=== PATIENT | male | born 1940 | race Caucasian/White ===

== ENCOUNTER 2016-10-04 15:18 | Inpatient (IN) | payer MEDICARE, BC ==
[~2016-10-04] VITALS: Ht 180.3 cm; Wt 75.0 kg
[2016-10-14] MEDS ORDERED: LOSA100T PO (11:42)
[2016-10-14] MEDS ORDERED: MISC1CAP7 PO (11:44)
[2016-10-14] MEDS ORDERED: ZOLP10TA3 PO (11:44)
[2016-10-14] MEDS ORDERED: TURMCAP PO (11:44)
[2016-10-14] MEDS ORDERED: PANT40TA3 PO (11:44)
[2016-10-14] MEDS ORDERED: NAPR220T95 PO (11:44)
[2016-10-14] MEDS ORDERED: B-CO1TAB3 PO (11:44)
[2016-10-29] VITALS (7 sets, daily range): BP systolic 120–140; BP diastolic 62–80; PULSE 71–84; RESP 16–20; TEMP 95.6–97.8; O2SAT 97–100
[2016-10-29] MEDS ORDERED: METOPROLOL TARTRATE 25 MG TAB PO PRN (05:30)
[2016-10-29] MEDS ORDERED: INSULIN HUMAN REGULAR 1,000 UNITS/10 ML VIAL SQ PRN (05:30)
[2016-10-29] MEDS ORDERED: LACTATED RINGER'S 1000 ML IV SCH (05:30)
[2016-10-29] MEDS ORDERED: SODIUM CHLORID 0.9% 500 ML IV SCH (05:30)
[2016-10-29] MEDS: CHLORHEXIDINE GLUCONATE 4% SOLN 120 ML BTL TOP SCH (05:45)
[2016-10-29] MEDS ORDERED: ceFAZolin 2 GM PREMIX 50 ML IV SCH (05:45)
[2016-10-29] MEDS ORDERED: GENTAMICIN SULFATE 80 MG/2 ML VIAL ONE (06:08)
[2016-10-29] MEDS ORDERED: MIDAZOLAM HCL 5 MG/5 ML VIAL ONE (06:10)
[2016-10-29] MEDS ORDERED: fentaNYL CITRATE 250 MCG/5 ML AMP ONE (06:49)
[2016-10-29] MEDS ORDERED: FAMOTIDINE 20 MG/2 ML VIAL ONE (06:49)
[2016-10-29] MEDS ORDERED: TRANEXAMIC ACID INJ 750 MG in SODIUM CHLORIDE 0.9% INJ 100 ML IV SCH ×2 (07:00→10:00)
[2016-10-29] MEDS: EXPAREL PERI-ARTICULAR INJECTION (TOTAL VOL. 100 ML) P-ARTICULR SCH ×4 (07:00→07:25)
[2016-10-29] MEDS: LACTATED RINGER'S 1000 ML INJ 1,000 ML IV SCH ×2 (09:27→21:57)
[2016-10-29] MEDS ORDERED: ACETAMINOPHEN/HYDROcodone 325 MG/7.5 MG TAB PO PRN (09:30)
[2016-10-29] MEDS ORDERED: TRANEXAMIC ACID INJ 0 MG in SODIUM CHLORIDE 0.9% INJ 100 ML IV SCH (09:30)
[2016-10-29] MEDS ORDERED: ONDANSETRON HCL 4 MG/2 ML VIAL IVP PRN (09:30)
[2016-10-29] MEDS ORDERED: MAGNESIUM HYDROXIDE SUSP 30 ML CUP PO PRN (09:30)
[2016-10-29] MEDS ORDERED: MORPHINE SULFATE 4 MG/ML INJ IV PUSH PRN (09:30)
[2016-10-29] MEDS ORDERED: ZOLPIDEM TARTRATE 5 MG TAB PO PRN (09:30)
[2016-10-29] MEDS ORDERED: *morphine SULFATE 8 MG/ML PERIprocedure ONLY ONE ×2 (09:55→10:19)
[2016-10-29] MEDS ORDERED: Post-op Orders (for Pharmacy) MISC XX ONE (10:00)
[2016-10-29] MEDS ORDERED: DO NOT ADM ANY ANTICOAGULANT DRUGS XX PRN (10:15)
[2016-10-29] MEDS ORDERED: PROPOFOL 200 MG/20 ML AMP IV ONE (10:22)
[2016-10-29] MEDS ORDERED: LACTATED RINGER'S 1000 ML INJ 1,000 ML IV ONE (10:22)
[2016-10-29] MEDS: KETOROLAC TROMETHAMINE 30 MG/ML (IVP) VIAL IVP SCH ×3 (10:29→21:16)
--- NOTE | 2016-10-29 10:32 | MP ---
cc: Shantell KEATING. DATE OF SURGERY 10/29/2016 PREOPERATIVE DIAGNOSIS Primary osteoarthritis left knee POSTOPERATIVE DIAGNOSIS Primary osteoarthritis left knee OPERATION PERFORMED Left total knee arthroplasty with [place] Triathlon prosthesis (uncemented). SURGEON Nayan Keating MD PAINTER ASSISTANT Pati Davenport, CSFA ANESTHESIA Spinal with supplemental adductor canal block and local. INDICATIONS AND FINDINGS This 76-year-old man has had over 20 years of left knee pain progressively worsening over the past several months. His ambulation tolerance has been markedly limited recently to approximately one mile because of his pain. He has difficulty ascending and descending stairs, standing from a seated position, walking, dancing and has episodes of giving-way. Treatment has included anti-inflammatory agents, analgesics, activity modification, specific exercises, physical therapy and ambulatory aids. He has not responded to these conservative measures. Physical findings showed significant genu varum in the left knee with palpable osteophytes. His range of motion was fairly good but there is crepitation throughout the entire range of motion. There is laxity in the medial compartment as well as tenderness in the medial compartment. There is patellofemoral crepitation. X-rays showed tricompartmental arthritis with predominant findings being in the medial compartment with loss of articular cartilage to bone on bone with medial osteophytes and subchondral sclerosis in the medial compartment. Operative findings showed changes consistent with the radiographic findings with primarily osteoarthritis in the medial compartment down to exposed subchondral bone with subchondral sclerosis on both sides. There are medial, lateral and patellofemoral osteophytes. There was change in the patellofemoral and lateral compartment as well. PROSTHESIS USED [place] Triathlon prosthesis with the femur being an uncemented size 6 cruciate-retaining, the tibia being a size 7 tritanium baseplate with a 9-mm cruciate-retaining spacer of X3 polyethylene and the patella being a tritanium backed asymmetric patella size 38. PROCEDURE The patient had an adductor canal block carried out preoperatively. He was then brought to the clean-air operating suite where a spinal anesthetic was administered. He received prophylactic antibiotics in the form of Ancef. He also received tranexamic acid. After an appropriate time-out, local anesthetic was administered into the incision site preoperatively. An anterior incision was then made from about two fingerbreadths above the superior medial pole of the patella down to the tibial tubercle. The incision was deepened through the subcutaneous tissues to the retinacular structures which were exposed medially and laterally. Medial retinacular incision was made from the superior medial pole of the patella down to the tibial tubercle. This was carried up into the quadriceps tendon, splitting it longitudinally in the medial one-third. The patella was reflected. Medial and lateral dissection was carried out. Hemostasis was carefully achieved with electrocautery throughout the procedure. The posterior surface of the patella was excised using the oscillating saw taking care to prevent injury to tendinous structures. A patella protector was applied. The patella was slipped into the lateral gutter. The anterior cruciate ligament was excised. A fenestration was made in the distal end of the femur at the appropriate site above the posterior cruciate ligament. The intramedullary referencing guide was then positioned in place for a 5-degree, 8-mm cut. The cutting block was stabilized with pins. The jig was removed. The distal femoral cut was then completed with the oscillating saw taking care to prevent injury to associated structures. The Whitesides line was marked as was the epicondylar axis. The distal femoral sizing guide was positioned in place according to these landmarks. These were stabilized with pins. The size was determined to be a size 6. A size 6 four-in-one cutting block was then positioned in place and stabilized with pins. Anterior and posterior cuts were made followed by posterior and anterior chamfer cuts. Osteophytes were trimmed. Attention was then directed to the tibia. Medial and lateral meniscectomies were completed. The tibia was exposed. Proximal tibial cutting guide and jig were then positioned appropriately. The cutting guide was positioned in place using the stylus off the lateral side. Cutting block was stabilized with pins. The jig was removed. The depth of cut was verified with the spacer block. This was adjusted accordingly. The proximal tibial cut was then completed with the oscillating saw taking care to prevent injury to associated structures. Depth of cut was verified with the spacer block. The cutting guide was removed. Further osteophytes were trimmed from the tibia. The osteophytes were trimmed from the posterior aspect of the femur. Local anesthesia was administered throughout the knee with Exparel. The tibial baseplate trial size [address] with a 9-mm spacer. The femoral component was impacted into place. This was then seated appropriately. The patella drill guide was positioned in place. Drill holes were then made. The patella trial was stabilized. The tibial baseplate was positioned in place as well and stabilized with pins. The range of motion of the knee at this time was 0 to 155 degrees. The stability was excellent in flexion and extension. Fenestrations were made in the distal end of the femur through femoral trial. The femoral trial was removed. The tibial spacer was removed. The tibial punch was impacted through its guide. The tibial baseplate trial was removed. The tibial drill guide was inserted. Tibial drill holes were made. In the eburnated area additional drill holes were made for circulation. The cut ends were then cleaned with pulse lavage. The tibial baseplate was then impacted into place and seated appropriately. The spacer was then inserted and impacted into place. The femoral component was impacted into place and seated appropriately. The patella was then positioned in place with the patellar vice. The appearance appeared excellent. The knee was taken through a range of motion which was easily 0 degrees extension to 155 degrees of flexion. Stability was excellent throughout the entire range of motion. Drains were brought out the superior and lateral aspect of the suprapatellar pouch. The remainder of the Exparel was injected. Wound closure then commenced using 0 Vicryl interrupted [id number] sutures for the retinacular structures and capsular structures and fascial structures, 2-0 Vicryl interrupted simple sutures with buried knots for the subcutaneous tissues and 4-0 Monocryl continuous subcuticular closure for the skin. The wound was dressed with Steri-Strips followed by dry dressing, sterile Sof-Rol, cooling pad, further sterile Sof-Rol and Wagner bandages from the base of the toe to mid-thigh. The patient was transferred from the operating room to the recovery room in satisfactory condition having tolerated the procedure well. COUNTS Correct. SPECIMEN None. ESTIMATED BLOOD LOSS 350 mL. MD DENISE Pimentel/SALMA /9:35 AM /10:15 AM MISTY
--- NOTE | 2016-10-29 10:40 | RADRPT ---
EXAM DATE/TIME: 10/29/2016 10:02 [place] COMPARISON: No previous studies available for comparison. INDICATIONS : Post op left knee surgery. MEDICAL HISTORY : None. SURGICAL HISTORY : None. ENCOUNTER: Initial ACUITY: 1 day PAIN SCORE: 5/10 LOCATION: Left knee FINDINGS: Two view examination of the left knee demonstrates postoperative left total knee replacement. Drain i n soft tissues. CONCLUSION: 1. Postoperative left total knee replacement. No complications identified. Ezekiel Oleary MD on October 29, 2016 at 10:38 Board Certified Radiologist. This report was verified electronically.
[2016-10-29] MEDS: ACETAMINOPHEN/HYDROcodone 325 MG/7.5 MG TAB PO PRN (12:42)
[2016-10-29] MEDS: SODIUM CHLORIDE 0.9% FLUSH 5 ML FLUSH IVF SCH (21:16)
[2016-10-30] VITALS: BP 136/73; PULSE 95; RESP 17; TEMP 97.5; O2SAT 97
[2016-10-30 04:00] VITALS: BP 130/70; PULSE 96; RESP 17; TEMP 97.3; O2SAT 97
[2016-10-30] MEDS: KETOROLAC TROMETHAMINE 30 MG/ML (IVP) VIAL IVP SCH ×4 (04:37→21:53)
[2016-10-30] MEDS: CHLORHEXIDINE GLUCONATE 4% SOLN 120 ML BTL TOP SCH (05:45)
[2016-10-30] MEDS: ACETAMINOPHEN/HYDROcodone 325 MG/7.5 MG TAB PO PRN ×4 (05:47→22:12)
--- NOTE | 2016-10-30 07:16 | PD.ORT.PN ---
Subjective Post Op Day #: 1 Subjective Remarks He is doing well with the knee. He says that he could have walked more with PT, but the therapist told him not to. He was able to walk to the bathroom. The nurses reported that he had difficulty voiding, so he was catheterized with a return of 600 ml. They left the catheter in. He has seen Dr. Chavez in the past but has not seen him in years. He usually takes some medication. He was able to void while upright in the bathroom. Range of Motion 0 to 90 degrees. Distance Walked 25 feet. Objective Vitals Vital Signs Date Time Temp Pulse Resp B/P Pulse Ox O2 Delivery O2 Flow Rate FiO2 10/30/16 04:00 97.3 96 17 130/70 97 10/30/16 00:00 97.5 95 17 136/73 97 10/29/16 22:00 97 21 10/29/16 19:00 96.7 83 16 133/64 97 10/29/16 16:12 95.7 74 16 120/62 99 10/29/16 13:44 18 10/29/16 11:43 98 Nasal Cannula 2.00 10/29/16 11:16 95.6 71 17 132/75 98 10/29/16 11:00 97.3 71 14 139/79 100 Nasal Cannula 2 10/29/16 10:45 65 12 120/72 100 Nasal Cannula 2 10/29/16 10:30 63 14 121/69 100 Nasal Cannula 2 10/29/16 10:25 12 10/29/16 10:15 63 12 114/74 100 Nasal Cannula 2 10/29/16 10:00 64 12 111/68 100 Nasal Cannula 2 10/29/16 10:00 12 10/29/16 09:45 99.3 73 14 113/60 98 Nasal Cannula 2 I/O 10/29/16 10/29/16 10/29/16 10/30/16 10/30/16 10/30/16 07:00 15:00 23:00 07:00 15:00 23:00 Intake Total 1680 ml 578 ml 480 ml Output Total 150 ml 490 ml 630 ml Balance -150 ml 1190 ml -52 ml 480 ml Intake Oral 480 ml 480 ml 480 ml IV Total 98 ml Other 1200 ml Output Urine Total 150 ml 600 ml Drainage Total 140 ml 30 ml Estimated Blood Loss 350 ml # Voids 1 1 0 # Bowel Movements 0 0 Imaging Knee x-ray looks good. Last 72 hours Impressions Knee X-Ray 10/29/16 0000 Signed Impressions: Service Date/Time: Saturday, October 29, 2016 10:02 - CONCLUSION: 1. Postoperative left total knee replacement. No complications identified. Ezekiel Oleary MD Objective Remarks He is resting comfortably, supine in bed in the [facility]. The original dressing is dry and intact. The neurovascular status is intact. Assessment & Plan Ortho Post Op Day #: 1 Problem List: (1) Status post total left knee replacement Plan: Continue postop care and PT. Assessment and Plan Condition: Good. Orthopaedically stable. DVT prophylaxis: DORIS stockings, sequentials, Xarelto. Discharge plans: Home with [facility], today or tomorrow. He has an appointment. Urology consultation for difficulty voiding and catheter disposition. Rx: [place] 7.5/325. Matthew Chambers MD (Charles) Oct 30, 2016 07:16
[2016-10-30] MEDS ORDERED: HYDR-3580 PO (07:56)
[2016-10-30] MEDS ORDERED: XARE10TA PO (07:56)
[2016-10-30 08:00] VITALS: BP 144/86; PULSE 90; RESP 16; TEMP 96.3; O2SAT 97
--- NOTE | 2016-10-30 08:01 | HHI.FF ---
Face to Face Verification Diagnosis: (1) Status post total left knee replacement Physical Therapy Gait training Knee: Total knee, Protocol: Left, Full weight bearing Left LE Weight Bearing: WB as tolerated Left LE Range of Motion: Active ROM (AROM, AAROM, PROM, PRE. ROM in OR was 0 to 155 degrees. ROM goal is 0 to 135 degrees at least.) Nursing Nursing: Dressing changes Dressing Changes: Daily dressing change, Coverderm/Primapore Additional Instructions Remove steristrips on postop day 14. I have seen patient Chace Villatoro on 10/30/16. My clinical findings support the need for the requested home health care services because: Ltd mobility - disease progression Limited ability to care for self High risk of falls I certify that my clinical findings support that this patient is homebound because: Post-op weakness Unsteady gait/balance Unsafe to leave home unassisted Matthew Chambers MD (Charles) Oct 30, 2016 08:01
[2016-10-30 08:03] LABS: HEMATOCRIT 32.3 % (39.0-51.0); REVIEW FLAG FINAL
[2016-10-30] MEDS ORDERED: WALKER WHEELS/F1 MIS (08:06)
[2016-10-30] MEDS ORDERED: MISC-163 (08:08)
[2016-10-30] MEDS: SODIUM CHLORIDE 0.9% FLUSH 5 ML FLUSH IVF SCH ×2 (08:48→21:53)
[2016-10-30] MEDS: RIVAROXABAN 10 MG TAB PO SCH (08:48)
[2016-10-30] MEDS ORDERED: ZOLPIDEM TARTRATE 10 MG TAB PO PRN (10:15)
[2016-10-30] MEDS: LACTATED RINGER'S 1000 ML INJ 1,000 ML IV SCH ×2 (10:27→22:57)
[2016-10-30] MEDS: PANTOPRAZOLE SOD 40 MG DELAYED RELEASE TAB PO SCH (10:49)
[2016-10-30] MEDS: LOSARTAN 50 MG TAB PO SCH (10:49)
[2016-10-30] MEDS: SODIUM CHLORIDE 0.9% FLUSH 5 ML FLUSH IVF PRN ×2 (10:49→16:53)
--- NOTE | 2016-10-30 11:14 | PD.CONS ---
[facility] Service Urology Consult Requested By Reason for Consult Urinary retention Primary Care Physician Walt Ha MD Diagnosis: History of Present Illness 76-year-old gentleman with history BPH and associated PSA elevation who recently underwent left knee surgery on October 29 of this year. Postoperatively the patient has been having problems urinating necessitating placement of a Mills catheter. Patient reports that prior to his present hospitalization he was using a saw palmetto containing product with excellent results in his voiding function. He reports that he is status post multiple prostate biopsies in the past for PSA elevation in all biopsies failed to demonstrate any evidence of prostate cancer. He formerly saw Dr. Chavez but has not followed up with him for the past several years. Review of Systems Constitutional: DENIES: Fever, Chills Gastrointestinal: DENIES: Abdominal pain Genitourinary: DENIES: Hematuria, Testicular Pain Musculoskeletal: DENIES: Back pain Past Family Social History Past Medical History Refer to EMR Past Surgical History Refer to EMR Reported Medications Refer to EMR Allergies: Coded Allergies: Polysporin (Unverified Allergy, Severe, Hives, 10/29/16) Ciprofloxacin (Unverified Adverse Reaction, Unknown, LOOSE STOOL, 10/29/16) Active Ordered Medications Refer to EMR Family History Reviewed and noncontributory Social History Lives at home with Physical Exam Vital Signs Vital Signs Date Time Temp Pulse Resp B/P Pulse Ox O2 Delivery O2 Flow Rate FiO2 10/30/16 08:00 96.3 90 16 144/86 97 10/30/16 04:00 97.3 96 17 130/70 97 10/30/16 00:00 97.5 95 17 136/73 97 10/29/16 22:00 97 21 10/29/16 19:00 96.7 83 16 133/64 97 10/29/16 16:12 95.7 74 16 120/62 99 10/29/16 13:44 18 10/29/16 11:43 98 Nasal Cannula 2.00 10/29/16 11:16 95.6 71 17 132/75 98 Physical Exam GENERAL: This is a well-nourished, well-developed patient, in no apparent distress. SKIN: No rashes, ecchymoses or lesions. Cool and dry. HEAD: Atraumatic. Normocephalic. No temporal or scalp tenderness. EYES: Pupils equal round and reactive. Extraocular motions intact. No scleral icterus. No injection or drainage. ENT: Nose without bleeding, purulent drainage or septal hematoma. Throat without erythema, tonsillar hypertrophy or exudate. Uvula midline. Airway patent. NECK: Trachea midline. No JVD or lymphadenopathy. Supple, nontender, no meningeal signs. GASTROINTESTINAL: Abdomen soft, non-tender, nondistended. No hepato-splenomegaly , or palpable masses. No guarding. : Mills catheter in place draining clear yellow urine. Bladder not distended MUSCULOSKELETAL: Extremities adequately perfused NEUROLOGICAL: Awake and alert. Cranial nerves II through XII intact. Motor and sensory grossly within normal limits. Normal speech. Laboratory Laboratory Tests Test 10/30/16 07:10 Hemoglobin 11.2 Hematocrit 32.3 Result Diagram: 10/30/16 0710 Assessment and Plan Assessment and Plan Urologic impression: #1 history BPH that has been responding well to [id number] supplements. #2 history PSA elevation related to BPH #3 postoperative urinary retention of most likely transient nature Recommendations: #1 implement a 1 week course of therapy with Flomax 0.4 mg daily to facilitate voiding #2 DC Mills catheter tomorrow morning for trial of voiding #3 if patient fails voiding trial then will need to have Mills catheter replaced and arrangements made for office follow up [phone]. Santos Yung MD Oct 30, 2016 11:14
[2016-10-30 12:00] VITALS: BP 143/72; PULSE 94; RESP 16; TEMP 97.3; O2SAT 96
[2016-10-30] MEDS: TAMSULOSIN HCL 0.4 MG CAP PO SCH (12:04)
--- NOTE | 2016-10-30 13:18 | PD.CONS ---
[facility] By [facility] Reason for Consult Med management Primary Care Physician Walt Ha MD Diagnoses: History of Present Illness 68 years old male with history of BPH and hypertension, admitted for left knee replacement on 10/29/16, patient Jason urinary obstruction postop, Mills placed, urology consulted. Patient reportedly using saw palmetto contained product before this hospitalization with a good result on voiding. Patient reported having multiple prostate biopsies in the past which were negative for any cancer. Currently he denied any chest or short of breath abdominal pain diarrhea constipation, fever or chills. Mills in place and functional, ortho following patient has a primary orthopedic service Review of Systems Other All 10 systems reviewed and was positive for what is mentioned in history of present illness otherwise negative Past Family Social History Allergies: Coded Allergies: Polysporin (Unverified Allergy, Severe, Hives, 10/29/16) Ciprofloxacin (Unverified Adverse Reaction, Unknown, LOOSE STOOL, 10/29/16) Past Medical History Hypertension Chronic pain to arthritis GERD Insomnia Family History Reviewed noncontributory Social History Denied tobacco alcohol or illicit drug abuse Physical Exam Vital Signs Vital Signs Date Time Temp Pulse Resp B/P Pulse Ox O2 Delivery O2 Flow Rate FiO2 10/30/16 12:00 97.3 94 16 143/72 96 10/30/16 08:00 96.3 90 16 144/86 97 10/30/16 04:00 97.3 96 17 130/70 97 10/30/16 00:00 97.5 95 17 136/73 97 10/29/16 22:00 97 21 10/29/16 19:00 96.7 83 16 133/64 97 10/29/16 16:12 95.7 74 16 120/62 99 10/29/16 13:44 18 Physical Exam GENERAL: This is a well-nourished, well-developed patient, in no apparent distress. SKIN: No rashes, warm and dry HEAD: Atraumatic. Normocephalic. EYES: Pupils equal round and reactive. Extraocular motions intact. No scleral icterus. ENT: Nose without bleeding, or drainage, Airway patent. NECK: Trachea midline. Supple CARDIOVASCULAR: Regular rate and rhythm without murmurs, gallops, or rubs. RESPIRATORY: Fair air entry bilaterally. No wheezes, rales, or rhonchi. GASTROINTESTINAL: Abdomen soft, non-tender, nondistended. Positive bowel sounds MUSCULOSKELETAL: Extremities without clubbing, cyanosis, or edema. Pedal pulses appreciated NEUROLOGICAL: Awake and alert. Moves all extremity. Normal speech.no focal neurological deficit Laboratory Laboratory Tests Test 10/30/16 07:10 Hemoglobin 11.2 Hematocrit 32.3 Result Diagram: 10/30/16 0710 Imaging Last Impressions Knee X-Ray 10/29/16 0000 Signed Impressions: Service Date/Time: Saturday, October 29, 2016 10:02 - CONCLUSION: 1. Postoperative left total knee replacement. No complications identified. Ezekiel Oleary MD Assessment and Plan Assessment and Plan 76 years old female admitted for Osteoarthritis status post left knee arthroplasty: Follow up postop pain management DVT prophylaxis per ortho on Xarelto, PT OT and rehabilitation per primary Postop urinary obstruction with history of BPH and elevated PSA: Started on Flomax by urology, appreciate neurology consultation, plan for removing catheter and voiding trial, if failed to return Mills catheter and follow up as an outpatient Hypertension: We will continue losartan, Vasotec as needed Insomnia: Continue Ambien DvT prophylaxis per ortho on Xarelto Thank you for this consultation Doreen Jaffe MD Oct 30, 2016 13:18
[2016-10-30 16:00] VITALS: BP 114/58; PULSE 95; RESP 16; TEMP 96.2; O2SAT 99
[2016-10-30 20:00] VITALS: BP 110/59; PULSE 87; RESP 18; TEMP 97.7; O2SAT 96
[2016-10-30] MEDS: DOCUSATE SODIUM 100 MG CAP PO SCH (21:53)
[2016-10-31] VITALS: BP 131/59; PULSE 88; RESP 18; TEMP 98; O2SAT 94
[2016-10-31] MEDS: KETOROLAC TROMETHAMINE 30 MG/ML (IVP) VIAL IVP SCH (03:11)
[2016-10-31] MEDS: CHLORHEXIDINE GLUCONATE 4% SOLN 120 ML BTL TOP SCH (03:11)
[2016-10-31 04:00] VITALS: BP 120/63; PULSE 94; RESP 18; TEMP 96.7; O2SAT 95
[2016-10-31] MEDS: ACETAMINOPHEN/HYDROcodone 325 MG/7.5 MG TAB PO PRN ×3 (05:40→14:45)
--- NOTE | 2016-10-31 06:24 | PD.ORT.PN ---
Subjective Post Op Day #: 2 Subjective Remarks He is doing quite well with the knee. He did well with therapy and attended the class. Thanks to Dr. Yung for his assistance. Range of Motion 0 to 95 degrees. Distance Walked 200 feet. Objective Vitals Vital Signs Date Time Temp Pulse Resp B/P Pulse Ox O2 Delivery O2 Flow Rate FiO2 10/31/16 04:00 96.7 94 18 120/63 95 10/31/16 00:00 98.0 88 18 131/59 94 10/30/16 20:00 97.7 87 18 110/59 96 10/30/16 18:28 21 10/30/16 16:00 96.2 95 16 114/58 99 10/30/16 12:00 97.3 94 16 143/72 96 10/30/16 08:00 96.3 90 16 144/86 97 I/O 10/30/16 10/30/16 10/30/16 10/31/16 10/31/16 10/31/16 07:00 15:00 23:00 07:00 15:00 23:00 Intake Total 1080 ml 1260 ml 480 ml Output Total 120 ml 2080 ml 550 ml 50 ml Balance 960 ml -820 ml -70 ml -50 ml Intake Oral 480 ml 1260 ml 480 ml IV Total 600 ml Output Urine Total 1900 ml 500 ml Drainage Total 120 ml 180 ml 50 ml 50 ml # Voids 0 # Bowel Movements 0 0 0 Result Diagram: 10/30/16 0710 Imaging Knee x-ray looks good. Last 72 hours Impressions Knee X-Ray 10/29/16 0000 Signed Impressions: Service Date/Time: Saturday, October 29, 2016 10:02 - CONCLUSION: 1. Postoperative left total knee replacement. No complications identified. Ezekiel Oleary MD Objective Remarks He is resting comfortably, supine in bed in the [facility]. The original dressing is dry and intact. The neurovascular status is intact.] Assessment & Plan Ortho Post Op Day #: 2 Problem List: (1) Status post total left knee replacement Plan: Continue postop care and PT. Assessment and Plan Condition: Good. Orthopaedically stable. DVT prophylaxis: DORIS stockings, sequentials, Xarelto. Discharge plans: Home with [facility], today. He has an appointment. Urology (Dr. Law's) plans on catheter disposition will be followed. Rx: [place] 7.5/325. Matthew Chambers MD (Charles) Oct 31, 2016 06:24 Urology consultation for difficulty voiding and catheter disposition. Rx: [place] 7.5/325. Matthew Chambers MD (Charles) Oct 31, 2016 06:24
[2016-10-31 07:22] LABS: HEMATOCRIT 30.1 % (39.0-51.0); REVIEW FLAG FINAL
[2016-10-31 08:00] VITALS: BP 126/67; PULSE 95; RESP 18; TEMP 95.7; O2SAT 98
[2016-10-31] MEDS: SODIUM CHLORIDE 0.9% FLUSH 5 ML FLUSH IVF SCH (09:24)
[2016-10-31] MEDS: LOSARTAN 50 MG TAB PO SCH (09:25)
[2016-10-31] MEDS: TAMSULOSIN HCL 0.4 MG CAP PO SCH (09:25)
[2016-10-31] MEDS: PANTOPRAZOLE SOD 40 MG DELAYED RELEASE TAB PO SCH (09:25)
[2016-10-31] MEDS: DOCUSATE SODIUM 100 MG CAP PO SCH (09:25)
[2016-10-31] MEDS: RIVAROXABAN 10 MG TAB PO SCH (09:25)
[2016-10-31] MEDS: LACTATED RINGER'S 1000 ML INJ 1,000 ML IV SCH (11:27)
[2016-10-31 12:00] VITALS: BP 120/62; PULSE 98; RESP 18; TEMP 96.6; O2SAT 98
--- NOTE | 2016-10-31 13:21 | HHI.PR ---
Subjective Remarks Patient sitting on the edge of the bed, his at the bedside Mills catheter removed, he is urinating small amounts "slowly " He reported loose stool, probably overuse of stool softener as per his Objective Vitals Vital Signs Date Time Temp Pulse Resp B/P Pulse Ox O2 Delivery O2 Flow Rate FiO2 10/31/16 12:00 96.6 98 18 120/62 98 10/31/16 08:00 95.7 95 18 126/67 98 10/31/16 04:00 96.7 94 18 120/63 95 10/31/16 00:00 98.0 88 18 131/59 94 10/30/16 20:00 97.7 87 18 110/59 96 10/30/16 18:28 21 10/30/16 16:00 96.2 95 16 114/58 99 I/O 10/30/16 10/30/16 10/30/16 10/31/16 10/31/16 10/31/16 07:00 15:00 23:00 07:00 15:00 23:00 Intake Total 1080 ml 1260 ml 480 ml 240 ml Output Total 120 ml 2080 ml 550 ml 1200 ml Balance 960 ml -820 ml -70 ml -960 ml Intake Oral 480 ml 1260 ml 480 ml 240 ml IV Total 600 ml Output Urine Total 1900 ml 500 ml 1150 ml Drainage Total 120 ml 180 ml 50 ml 50 ml # Voids 0 # Bowel Movements 0 0 0 0 Result Diagram: 10/31/16 0637 Objective Remarks GENERAL: This is a well-nourished, well-developed patient, in no apparent distress. CARDIOVASCULAR: Regular rate and rhythm without murmurs, gallops, or rubs. RESPIRATORY: Clear to auscultation. Breath sounds equal bilaterally. No wheezes , rales, or rhonchi. GASTROINTESTINAL: Abdomen soft, non-tender, nondistended. Normal active bowel sounds MUSCULOSKELETAL: Extremities without clubbing, cyanosis, or edema. NEURO: Alert & Oriented x4 to person, place, time, situation. Moves all ext x4 A/P Assessment and Plan 76 years old female admitted for Osteoarthritis status post left knee arthroplasty: Follow up postop pain management DVT prophylaxis per ortho on Xarelto, PT OT and rehabilitation per primary Postop urinary obstruction with history of BPH and elevated PSA: Continue Flomax , appreciate neurology consultation, catheter removed, he's able to void slowly , will need to follow up as an outpatient with urologist Hypertension: We will continue losartan, Vasotec as needed Insomnia: Continue Ambien DvT prophylaxis per ortho on Xarelto Discharge Planning Medically stable for discharge Doreen Jaffe MD Oct 31, 2016 13:21
[2016-10-31 13:24] VITALS: O2SAT 96
[2016-11-01] MEDS ORDERED: TAMS5CAP PO (17:32)
[2016-11-27] MEDS ORDERED: CEPH-459 PO (11:27)
[2016-11-28] MEDS ORDERED: TAMS5CAP PO (15:41)
[2016-11-28] MEDS ORDERED: FINA5TAB2 PO (15:41)
== END 2016-10-31 15:14 | disposition home health service (06) | DRG 470 ==
LOC: HSDI 10-29 05:06 → N06B 10-29 11:12
PROVIDERS: ADMIT Orthopaedic Surgery; ATTEND Orthopaedic Surgery
PROC: 3E0T3BZ Introduction of Anesthetic Agent into Peripheral Nerves and Plexi, Percutaneous Approach (ICD-10-PCS; 2016-10-29)
PROC: 0T9B70Z Drainage of Bladder with Drainage Device, Via Natural or Artificial Opening (ICD-10-PCS; 2016-10-29)
PROC: 0SRD0JA Replacement of Left Knee Joint with Synthetic Substitute, Uncemented, Open Approach (ICD-10-PCS; principal; 2016-10-29 06:45)
DX: M17.12 Unilateral primary osteoarthritis, left knee (principal); I10 Essential (primary) hypertension; M21.162 Varus deformity, not elsewhere classified, left knee; Z85.820 Personal history of malignant melanoma of skin; Z85.828 Personal history of other malignant neoplasm of skin; K21.9 Gastro-esophageal reflux disease without esophagitis; R33.8 Other retention of urine; N40.0 Benign prostatic hyperplasia without lower urinary tract symptoms; G47.00 Insomnia, unspecified
CPT/HCPCS: 73560; 85014; 85018; 86850; 86900; 86901; 94150; C1776; C9290; J0690; J1580; J1885; J2250; J2270; J2405; J3010; J7120

== ENCOUNTER 2016-11-01 14:38 | Emergency (ER) | payer MEDICARE, BC ==
[~2016-11-01 14:38] MED LIST: B-CO1TAB3 PO; HYDR-3580 PO; LOSA100T PO; MISC-163; MISC1CAP7 PO; PANT40TA3 PO; TURMCAP PO; WALKER WHEELS/F1 MIS; XARE10TA PO; ZOLP10TA3 PO
[2016-11-01 15:12] VITALS: BP 158/77; PULSE 90; RESP 18; TEMP 98.1; O2SAT 99
[2016-11-01 16:52] LABS: AUTOMATED NEUTROPHIL # 6.1 TH/MM3 (1.8-7.7); BASOPHIL % 0.6 % (0.0-2.0); EOSINOPHIL # 0.1 TH/MM3 (0-0.4); EOSINOPHIL % 0.8 % (0.0-4.0); HEMATOCRIT 31.8 % (39.0-51.0); LYMPH % 7.6 % (9.0-44.0); LYMPHOCYTE # 0.6 TH/MM3 (1.0-4.8); MEAN CELL VOLUME 89.9 FL (80.0-100.0); MEAN CORPUSCULAR HEMOGLOBIN 30.2 PG (27.0-34.0); MEAN CORPUSCULAR HGB CONC 33.6 % (32.0-36.0); MONO % 9.3 % (0.0-8.0); NEUT % 81.7 % (16.0-70.0); PLATELET COUNT 220 TH/MM3 (150-450); RED BLOOD COUNT 3.54 MIL/MM3 (4.50-5.90); RED CELL DISTRIBUTION WIDTH 11.8 % (11.6-17.2); WHITE BLOOD COUNT 7.5 TH/MM3 (4.0-11.0)
[2016-11-01 16:53] LABS: BLOOD, URINE TRACE (NEG); GLUCOSE,URINE NEG (NEG); KETONE, URINE NEG (NEG); NITRITE,URINE NEG (NEG)
[2016-11-01 17:00] LABS: POTASSIUM 5.1 MEQ/L (3.5-5.1)
[2016-11-01 17:03] LABS: BICARBONATE 26.6 MEQ/L (21.0-32.0)
--- NOTE | 2016-11-01 17:04 | PD ---
HPI Chief Complaint: Complaint Time Seen by Provider: 16:24 Travel History International Travel<30 days: No Contact w/Intl Traveler<30days: No Traveled to known affect area: No History of Present Illness HPI Patient is a 68-year-old male with a history of recent total left knee replacement presents to the emergency department with inability to urinate since morning. Patient states he had similar problems while in the hospital did see urologist Dr. Yung he did have a Mills catheter in place for a few days had a trial of Flomax one is a little urinary by time he went home. He states he is been having some increased abdominal distention as well as nausea since last night. Patient states he does have a history of enlarged prostate and radiation treatment was present as well. Denies any fever denies any diarrhea denies any abdominal pain. PFSH Past Medical History Cancer: Yes (MELANOMA AND BASAL REMOVED) Cardiovascular Problems: No Diabetes: No Endocrine: No Gastrointestinal Disorders: Yes (GERD) Genitourinary: Yes (ENLARGED PROSTATE) Hepatitis: No Hiatal Hernia: No Hypertension: Yes Immune Disorder: No Implanted Vascular Access Dvce: Yes Musculoskeletal: Yes (OSTEOARTHRITIS) Neurologic: No Psychiatric: No Reproductive: No Respiratory: No Thyroid Disease: No Past Surgical History Abdominal Surgery: No AICD: No Cardiac Surgery: No Ear Surgery: No Endocrine Surgery: No Eye Surgery: No Genitourinary Surgery: No Gynecologic Surgery: No Joint Replacement: Yes (KNEE) Neurologic Surgery: No Oral Surgery: No Pacemaker: No Thoracic Surgery: No Other Surgery: Yes Social History Alcohol Use: Yes (COUPLE DRINKS PER MONTH) Tobacco Use: No Substance Use: No Allergies-Medications (Allergen,Severity, Reaction): Coded Allergies: Polysporin (Unverified Allergy, Severe, Hives, 11/01/16) Ciprofloxacin (Unverified Adverse Reaction, Unknown, LOOSE STOOL, 11/01/16) Reported Meds & Prescriptions Reported Meds & Active Scripts Active Flomax (Tamsulosin HCl) 0.4 Mg Cap 0.4 Mg PO HS Hydrocodone-Acetaminophen 7.5-325 mg Tab 1 Tab PO Q4H PRN Xarelto (Rivaroxaban) 10 Mg Tab 10 Mg PO Q24H Reported B50 Complex Tr (B-Complex W/Biotin & Folic Acid ER) 1 Tab PO DAILY Zolpidem (Zolpidem Tartrate) 10 Mg Tab 10 Mg PO HS PRN Pantoprazole (Pantoprazole Sodium) 40 Mg Tab 40 Mg PO DAILY Losartan (Losartan Potassium) 100 Mg Tab 100 Mg PO DAILY Review of Systems Except as stated in HPI: all other systems reviewed are Neg Physical Exam Narrative GENERAL: Well-developed well-nourished in no apparent distress SKIN: Warm and dry. HEAD: Atraumatic. Normocephalic. EYES: Pupils equal and round. No scleral icterus. No injection or drainage. ENT: No nasal bleeding or discharge. Mucous membranes pink and moist. NECK: Trachea midline. No JVD. CARDIOVASCULAR: Regular rate and rhythm. No murmur appreciated. RESPIRATORY: No accessory muscle use. Clear to auscultation. Breath sounds equal bilaterally. GASTROINTESTINAL: Abdomen soft, minimally tender in the superpubic area, moderately distended. Hepatic and splenic margins not palpable. MUSCULOSKELETAL: No obvious deformities. No clubbing. No cyanosis. No edema. Surgical bandages in place in the left knee, compression stockings as well. No erythema seen tenderness. Bandages were left in place. NEUROLOGICAL: Awake and alert. No obvious cranial nerve deficits. Motor grossly within normal limits. Normal speech. PSYCHIATRIC: Appropriate mood and affect; insight and judgment normal. Data Data Last Documented VS Vital Signs Date Time Temp Pulse Resp B/P Pulse Ox O2 Delivery O2 Flow Rate FiO2 11/01/16 17:57 105 17 138/64 98 Room Air 11/01/16 15:12 98.1 Orders Urinary Catheter Insert/Apply (11/01/16 15:34) Basic Metabolic Panel (Bmp) (11/01/16 16:33) Complete Blood Count With Diff (11/01/16 16:33) Urinalysis - C+S If Indicated (11/01/16 16:33) Labs Laboratory Tests Test 11/01/16 16:45 White Blood Count 7.5 TH/MM3 Red Blood Count 3.54 MIL/MM3 Hemoglobin 10.7 GM/DL Hematocrit 31.8 % Mean Corpuscular Volume 89.9 FL Mean Corpuscular Hemoglobin 30.2 PG Mean Corpuscular Hemoglobin 33.6 % Concent Red Cell Distribution Width 11.8 % Platelet Count 220 TH/MM3 Mean Platelet Volume 7.8 FL Neutrophils (%) (Auto) 81.7 % Lymphocytes (%) (Auto) 7.6 % Monocytes (%) (Auto) 9.3 % Eosinophils (%) (Auto) 0.8 % Basophils (%) (Auto) 0.6 % Neutrophils # (Auto) 6.1 TH/MM3 Lymphocytes # (Auto) 0.6 TH/MM3 Monocytes # (Auto) 0.7 TH/MM3 Eosinophils # (Auto) 0.1 TH/MM3 Basophils # (Auto) 0.0 TH/MM3 CBC Comment DIFF FINAL Differential Comment Urine Collection Type CATH Urine Color STRAW Urine Turbidity CLEAR Urine pH 6.0 Urine Specific [place] 1.007 Urine Protein NEG mg/dL Urine Glucose (UA) NEG mg/dL Urine Ketones NEG mg/dL Urine Occult Blood TRACE Urine Nitrite NEG Urine Bilirubin NEG Urine Leukocyte Esterase NEG Urine RBC 0-3 /hpf Urine Squamous Epithelial 0-2 /hpf Cells Microscopic Urinalysis Comment CULT NOT INDICATED Sodium Level 129 MEQ/L Potassium Level 5.1 MEQ/L Chloride Level 94 MEQ/L Carbon Dioxide Level 26.6 MEQ/L Anion Gap 8 MEQ/L Blood Urea Nitrogen 21 MG/DL Creatinine 2.30 MG/DL Estimat Glomerular Filtration 28 ML/MIN Rate Random Glucose 116 MG/DL Calcium Level 8.4 MG/DL [facility] Medical Decision Making Medical Screen Exam Complete: Yes Emergency Medical Condition: Yes Differential Diagnosis Urinary retention, acute kidney injury, urinary tract infection, BPH. Narrative Course Patient was discussed with Dr. Lew including all lab results and urine output. Patient had a Mills catheter placed in the ER using 1.7 L of urine. Patient felt completely relieved after Mills catheter was placed. Will be discharged with leg bag in place. Patient was discussed with Dr. Lew who is covering for Dr. Yung who will discuss with Dr. Yung over this weekend and arrange for an appointment on Friday in 2 days. Patient will also be started on Flomax. Discussed with him return to ED criteria. Diagnosis Primary Impression: Obstructive uropathy Med/Other Pt SpecificInfo: Prescription(s) given Scripts Tamsulosin (Flomax)0.4 Mg Cap0.4 Mg PO HS #30 CAP Ref 0 Prov:Chace Wen MD 11/01/16 Disposition: 01 DISCHARGE HOME Condition: Stable Chace Wen MD Nov 01, 2016 17:04
[2016-11-01 17:12] LABS: HEMO FLAGS DIFF FINAL
[2016-11-01 17:20] LABS: METHOD OF COLLECTION CATH; URINE COLOR STRAW (YELLW/STRAW)
[2016-11-01 17:21] LABS: COMMENT (UR) CULT NOT INDICATED; CULTURE IF INDICATED CULT NOT INDICATED; RBC, URINE 0-3 /hpf (0-3); SQUAMOUS EPITHELIAL CELL URINE 0-2 /hpf (0-5)
[2016-11-01] MEDS ORDERED: TAMS5CAP PO (17:32)
[2016-11-01 17:57] VITALS: BP 138/64; PULSE 105; RESP 17; O2SAT 98
[2016-11-27] MEDS ORDERED: CEPH-459 PO (11:27)
[2016-11-28] MEDS ORDERED: TAMS5CAP PO (15:41)
[2016-11-28] MEDS ORDERED: FINA5TAB2 PO (15:41)
== END 2016-11-01 18:04 | disposition home or self-care (01) ==
LOC: PHEFT 14:38
DX: N13.9 Obstructive and reflux uropathy, unspecified (principal); R11.0 Nausea; I10 Essential (primary) hypertension
CPT/HCPCS: 51703; 80048; 81001; 85025

== ENCOUNTER 2016-11-07 06:40 | Emergency (ER) | payer MEDICARE, BC ==
[~2016-11-07] VITALS: Ht 180.3 cm; Wt 75.0 kg
[~2016-11-07 06:40] MED LIST changes: -MISC-163; -MISC1CAP7 PO; +TAMS5CAP PO; -TURMCAP PO; -WALKER WHEELS/F1 MIS
[2016-11-07 06:52] VITALS: BP 116/68; PULSE 98; RESP 18; TEMP 98; O2SAT 98
--- NOTE | 2016-11-07 07:25 | PD ---
HPI Chief Complaint: Complaint Time Seen by Provider: 07:08 Travel History International Travel<30 days: No Contact w/Intl Traveler<30days: No Traveled to known affect area: No History of Present Illness HPI This 76-year-old male presents emergent department complaining of inability to urinate bladder spasms. He is a history of prostate problems. He gets up to be about 3 times a night or so. He's had microwave therapy in the past. No history of prostate malignancy. He had his left knee done with Dr. Cuong Chambers on the third. Postop course was complicated by urinary retention. He saw Dr. Yung the hospital. He was doing well. Is placed on Flomax. He was discharged. He developed acute urinary retention was seen in the hospital on the sixth in the emergency department had a Mills catheter placed. He was to follow-up with urology. They called the office and they couldn't get him in for an appointment but that he was doing well. They had him hold the Mills catheter yesterday. 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 He was being well initially during the day, but then overnight was unable to urinate. He's had some dribbling but no real urination since yesterday. No other complaints. History Past Medical History Narrative Medical Hypertension Skin CA BPH GERD Social History Alcohol Use: Yes (COUPLE DRINKS PER MONTH) Tobacco Use: No Allergies-Medications (Allergen,Severity, Reaction): Coded Allergies: Polysporin (Unverified Allergy, Severe, Hives, 11/07/16) Ciprofloxacin (Unverified Adverse Reaction, Unknown, LOOSE STOOL, 11/07/16) Reported Meds & Prescriptions Reported Meds & Active Scripts Active Flomax (Tamsulosin HCl) 0.4 Mg Cap 0.4 Mg PO HS Hydrocodone-Acetaminophen 7.5-325 mg Tab 1 Tab PO Q4H PRN Xarelto (Rivaroxaban) 10 Mg Tab 10 Mg PO Q24H Reported B50 Complex Tr (B-Complex W/Biotin & Folic Acid ER) 1 Tab PO DAILY Zolpidem (Zolpidem Tartrate) 10 Mg Tab 10 Mg PO HS PRN Pantoprazole (Pantoprazole Sodium) 40 Mg Tab 40 Mg PO DAILY Losartan (Losartan Potassium) 100 Mg Tab 100 Mg PO DAILY Review of Systems Except as stated in HPI: all other systems reviewed are Neg Physical Exam Narrative GENERAL: Well-appearing 76-year-old man, no acute distress. SKIN: Warm and dry. HEAD: Atraumatic. Normocephalic. CARDIOVASCULAR: Regular rate and rhythm. No murmur appreciated. RESPIRATORY: No accessory muscle use. Clear to auscultation. Breath sounds equal bilaterally. GASTROINTESTINAL: Abdomen is palpable lower abdominal distention and tenderness. No rebound or guarding. MUSCULOSKELETAL: No obvious deformities. No edema. Left knee with bandage in place. A little bit of swelling to the knee. No erythema redness warmth or evidence of infection. NEUROLOGICAL: Awake and alert. No obvious cranial nerve deficits. Motor grossly within normal limits. Normal speech. Data Data Last Documented VS Vital Signs Date Time Temp Pulse Resp B/P Pulse Ox O2 Delivery O2 Flow Rate FiO2 11/07/16 06:52 98.0 98 18 116/68 98 Orders Basic Metabolic Panel (Bmp) (11/07/16 07:16) Urinalysis - C+S If Indicated (11/07/16 07:16) Urinary Catheter Insert/Apply (11/07/16 07:16) Labs Laboratory Tests Test 11/07/16 07:45 Urine Collection Type CLEAN CATCH Urine Color YELLOW Urine Turbidity CLEAR Urine pH 5.5 Urine Specific [place] 1.014 Urine Protein NEG mg/dL Urine Glucose (UA) NEG mg/dL Urine Ketones NEG mg/dL Urine Occult Blood MOD Urine Nitrite NEG Urine Bilirubin NEG Urine Leukocyte Esterase NEG Urine RBC 15-19 /hpf Urine WBC 0-2 /hpf Urine Squamous Epithelial 0-5 /hpf Cells Microscopic Urinalysis Comment CULT NOT INDICATED Urine Collection Time 07:45 Sodium Level 136 MEQ/L Potassium Level 4.7 MEQ/L Chloride Level 103 MEQ/L Carbon Dioxide Level 22.5 MEQ/L Anion Gap 11 MEQ/L Blood Urea Nitrogen 21 MG/DL Creatinine 1.10 MG/DL Estimat Glomerular Filtration 65 ML/MIN Rate Random Glucose 117 MG/DL Calcium Level 8.8 MG/DL [facility] Medical Decision Making Medical Screen Exam Complete: Yes Emergency Medical Condition: Yes Interpretation(s) UA was some rbc's, no evidence of infection. BMP: BUN and creatinine are improved. Differential Diagnosis Urinary retention, obstructive uropathy, infection, other Narrative Course Medical decision making 76-year-old male with history of BPH presents with recurrent difficulty with urinary retention. We'll replace Mills catheter. We'll check urinalysis GERD patient is new hardware in the left knee would be very susceptible to infection or bacteremia. We'll check creatinine. Creatinine had bumped from 1.19 in September to 2.3 during his last ED visit. Minimal increase in BUN. Outpatient follow-up with urology. Diagnosis Primary Impression: Obstructive uropathy Referrals: Santos Yung MD 1 week Patient Instructions: General Instructions Additional Instructions: Continue Mills catheter care as instructed. He can use petroleum jelly at the tip of the penis if needed for irritation and inflammation. Follow-up with Dr. Yung at the first available appointment. Return to the emergency department for any fevers, chills, or any other new or worsening symptoms. Med/Other Pt SpecificInfo: No Change to Meds Disposition: 01 DISCHARGE HOME Condition: Stable Rhys Ely MD Nov 07, 2016 07:25
[2016-11-07 07:52] LABS: GLUCOSE,URINE NEG (NEG); KETONE, URINE NEG (NEG); NITRITE,URINE NEG (NEG); PH, URINE 5.5 (5.0-8.5)
[2016-11-07 08:00] LABS: BLOOD, URINE MOD (NEG); METHOD OF COLLECTION CLEAN CATCH; POTASSIUM 4.7 MEQ/L (3.5-5.1); URINE COLOR YELLOW (YELLW/STRAW)
[2016-11-07 08:02] LABS: COMMENT (UR) CULT NOT INDICATED; CULTURE IF INDICATED CULT NOT INDICATED; RBC, URINE 15-19 /hpf (0-3); SQUAMOUS EPITHELIAL CELL URINE 0-5 /hpf (0-5); WBC, URINE 0-2 /hpf (0-5)
[2016-11-07 08:03] LABS: BICARBONATE 22.5 MEQ/L (21.0-32.0)
[2016-11-07 08:34] VITALS: BP 112/65
[2016-11-27] MEDS ORDERED: CEPH-459 PO (11:27)
[2016-11-28] MEDS ORDERED: TAMS5CAP PO (15:41)
[2016-11-28] MEDS ORDERED: FINA5TAB2 PO (15:41)
== END 2016-11-07 08:34 | disposition home or self-care (01) ==
LOC: PHED 06:40
DX: N13.9 Obstructive and reflux uropathy, unspecified (principal); N40.0 Benign prostatic hyperplasia without lower urinary tract symptoms; I10 Essential (primary) hypertension
CPT/HCPCS: 51703; 80048; 81001

== ENCOUNTER 2017-01-13 13:42 | Inpatient (IN) | payer MEDICARE, BC ==
[~2017-01-13 13:42] MED LIST changes: +FINA5TAB2 PO; -HYDR-3580 PO; -XARE10TA PO
[2017-01-24] MEDS ORDERED: MELO-1 PO (12:30)
[2017-02-03] MEDS ORDERED: ceFAZolin 2 GM PREMIX 50 ML IV SCH (06:00)
[2017-02-03] MEDS ORDERED: EXPAREL PERI-ARTICULAR INJECTION (TOTAL VOL. 100 ML) P-ARTICULR SCH ×2 (06:00)
[2017-02-03] MEDS ORDERED: CHLORHEXIDINE GLUCONATE 4% SOLN 120 ML BTL TOPICAL SCH (06:00)
[2017-02-03 06:03] VITALS: BP 172/93; PULSE 99; RESP 16; TEMP 98; O2SAT 100
[2017-02-03] MEDS ORDERED: LACTATED RINGER'S 1000 ML IV PRN (06:15)
[2017-02-03] MEDS ORDERED: INSULIN HUMAN REGULAR 1,000 UNITS/10 ML VIAL SQ PRN (06:15)
[2017-02-03] MEDS ORDERED: SODIUM CHLORID 0.9% 500 ML IV PRN (06:15)
[2017-02-03] MEDS ORDERED: METOPROLOL TARTRATE 25 MG TAB PO PRN (06:15)
[2017-02-03] MEDS ORDERED: DEXAMETHASONE SOD PHOS 4 MG/ML VIAL ONE (06:36)
[2017-02-03] MEDS ORDERED: FAMOTIDINE 20 MG/2 ML VIAL ONE (06:36)
[2017-02-03] MEDS ORDERED: ACETAMINOPHEN 1000 MG/100 ML VIAL IV ONE (06:36)
[2017-02-03] MEDS ORDERED: ONDANSETRON HCL 4 MG/2 ML VIAL IVP PRN (07:00)
[2017-02-03] MEDS ORDERED: TRANEXAMIC ACID INJ 0 MG in SODIUM CHLORIDE 0.9% INJ 100 ML IV SCH (07:00)
[2017-02-03] MEDS ORDERED: MORPHINE SULFATE 4 MG/ML INJ IV PUSH PRN (07:00)
[2017-02-03] MEDS ORDERED: ACETAMINOPHEN/HYDROcodone 325 MG/7.5 MG TAB PO PRN (07:00)
[2017-02-03] MEDS ORDERED: MAGNESIUM HYDROXIDE SUSP 30 ML CUP PO PRN (07:00)
[2017-02-03] MEDS ORDERED: TRANEXAMIC ACID INJ 768 MG in SODIUM CHLORIDE 0.9% INJ 100 ML IV SCH ×2 (07:00→10:00)
[2017-02-03] MEDS ORDERED: ZOLPIDEM TARTRATE 5 MG TAB PO PRN (07:00)
[2017-02-03] MEDS ORDERED: Post-op Orders (for Pharmacy) MISC XX ONE (07:00)
[2017-02-03] MEDS ORDERED: SODIUM CHLORIDE 0.9% FLUSH 10 ML FLUSH IV FLUSH PRN (07:15)
[2017-02-03] MEDS ORDERED: GENTAMICIN SULFATE 80 MG/2 ML VIAL IRRIGATION ONE (07:51)
[2017-02-03] MEDS: LACTATED RINGER'S 1000 ML INJ 1,000 ML IV SCH ×2 (08:00→20:30)
[2017-02-03] MEDS: VITAMIN B CMPLX/VITC/FOLIC AC CAP PO SCH (09:00)
[2017-02-03] MEDS: FINASTERIDE 5 MG TAB PO SCH (09:00)
[2017-02-03] MEDS: SODIUM CHLORIDE 0.9% FLUSH 10 ML FLUSH IV FLUSH SCH ×2 (09:00→20:36)
[2017-02-03] MEDS: LOSARTAN 50 MG TAB PO SCH (09:00)
[2017-02-03] MEDS: PANTOPRAZOLE SOD 40 MG DELAYED RELEASE TAB PO SCH (09:00)
--- NOTE | 2017-02-03 09:46 | HHI.FF ---
Face to Face Verification Diagnosis: (1) Status post total right knee replacement Physical Therapy Gait training Knee: Total knee, Knee fracture, Protocol: Right, Gait training, Full weight bearing Right LE Range of Motion: Active ROM (AROM, AAROM, PROM, PRE. ROM goal is 0 to 135 degrees. ROM in the OR was 0 to 150 degrees.) Left LE Weight Bearing: WB as tolerated Nursing Nursing: Dressing changes Dressing Changes: Daily dressing change, Coverderm/Primapore Additional Instructions Remove steristrips on postop day 14. I have seen patient Chace Villatoro on 02/03/17. My clinical findings support the need for the requested home health care services because: Ltd mobility - disease progression Limited ability to care for self High risk of falls I certify that my clinical findings support that this patient is homebound because: Post-op weakness Unsteady gait/balance Unsafe to leave home unassisted Matthew Chambers MD (Charles) Feb 03, 2017 09:46
[2017-02-03] MEDS ORDERED: MIDAZOLAM HCL 2 MG/2 ML VIAL ONE (09:56)
[2017-02-03] MEDS ORDERED: PHENYLEPH/NS 1000 MCG/10 ML SYR IV ONE (10:02)
[2017-02-03] MEDS ORDERED: ONDANSETRON HCL 4 MG/2 ML VIAL IV PUSH ONE (10:02)
[2017-02-03] MEDS ORDERED: PROPOFOL 200 MG/20 ML AMP IV ONE (10:02)
[2017-02-03] MEDS ORDERED: LACTATED RINGER'S 1000 ML INJ 1,000 ML IV ONE (10:02)
[2017-02-03] MEDS ORDERED: *morphine SULFATE 8 MG/ML PERIprocedure ONLY ONE ×2 (10:04→10:17)
--- NOTE | 2017-02-03 10:17 | RADRPT ---
EXAM DATE/TIME: 02/03/2017 09:42 [place] COMPARISON: No previous studies available for comparison. INDICATIONS : Post right total knee surgery. MEDICAL HISTORY : None. SURGICAL HISTORY : None. ENCOUNTER: Initial ACUITY: 1 day PAIN SCORE: Non-responsive. LOCATION: Right Knee. FINDINGS: Right total knee arthroplasty is noted with surgical drains seen anteriorly, soft tissue swelling and soft tissue emphysema at the knee joint. No fracture or dislocation. CONCLUSION: Postsurgical changes right total knee arthroplasty. Da Guevara MD on February 03, 2017 at 10:15 Board Certified Radiologist. This report was verified electronically.
[2017-02-03 11:05] VITALS: BP 142/79; PULSE 84; RESP 16; TEMP 96.2; O2SAT 95
[2017-02-03] MEDS: ACETAMINOPHEN/HYDROcodone 325 MG/7.5 MG TAB PO PRN (11:11)
[2017-02-03] MEDS ORDERED: BUPIVACAINE LIPOSOME PF 1.3% 20 ML VIAL ONE (12:55)
[2017-02-03] MEDS: KETOROLAC TROMETHAMINE 30 MG/ML (IVP) VIAL IVP SCH ×2 (13:25→20:36)
[2017-02-03 15:55] VITALS: BP 134/61; PULSE 89; RESP 16; TEMP 95.1; O2SAT 99
[2017-02-03 15:58] VITALS: O2SAT 98
--- NOTE | 2017-02-03 16:45 | PD.CONS ---
[facility] Request[facility] By Dr. Chambers Reason for Consult Medical management Primary Care Physician Walt Ha MD Diagnoses: History of Present Illness This is a pleasant 76-year-old male with past medical history of BPH, hypertension, GERD who presented with a elective right total knee arthroplasty. [facility] consulted for medical management. Patient stated that 3 months ago he had a left total knee arthroplasty he did well. Patient has no concerns. He does state to make sure that he is is given Flomax at night and finasteride in the morning. Review of Systems Constitutional: DENIES: Diaphoretic episodes, Fatigue, Fever, Weight gain, Weight loss, Chills, Dizziness, Change in appetite, Night Sweats Endocrine: DENIES: Heat/cold intolerance, Polydipsia, Polyuria, Polyphagia Eyes: DENIES: Blurred vision, Diplopia, Eye inflammation, Eye pain, Vision loss , Photosensitivity, Double Vision Ears, nose, mouth, throat: DENIES: Tinnitus, Hearing loss, Vertigo, Nasal discharge, Oral lesions, Throat pain, Hoarseness, Ear Pain, Running Nose, Epistaxis, Sinus Pain, Toothache, Odynophagia Respiratory: DENIES: Apneas, Cough, Snoring, Wheezing, Hemoptysis, Sputum production, Shortness of breath Cardiovascular: DENIES: Chest pain, Palpitations, Syncope, Dyspnea on Exertion , PND, Lower Extremity Edema, Orthopnea, Claudication Gastrointestinal: DENIES: Abdominal pain, Black stools, Bloody stools, Constipation, Diarrhea, Nausea, Vomiting, Difficulty Swallowing, Anorexia Genitourinary: DENIES: Sexual dysfunction, Urinary frequency, Urinary incontinence, Urgency, Hematuria, Dysuria, Nocturia, Penile Discharge, Testicular Pain, Testicular Swelling Musculoskeletal: COMPLAINS OF: Joint pain, Joint Swelling, DENIES: Muscle aches, Stiffness, Back pain, Neck pain Integumentary: DENIES: Abnormal pigmentation, Nail changes, Pruritus, Rash Hematologic/lymphatic: DENIES: Bruising, Lymphadenopathy Immunologic/allergic: DENIES: Eczema, Urticaria Neurologic: DENIES: Abnormal gait, Headache, Localized weakness, Paresthesias, Seizures, Speech Problems, Tremor, Poor Balance Psychiatric: DENIES: Anxiety, Confusion, Mood changes, Depression, Hallucinations, Agitation, Suicidal Ideation, Homicidal Ideation, Delusions Past Family Social History Allergies: Coded Allergies: Polysporin (Verified Allergy, Severe, Hives, 02/03/17) Ciprofloxacin (Verified Adverse Reaction, Severe, LOOSE STOOL, 02/03/17) Past Medical History BPH, hypertension, GERD Past Surgical History Left total knee arthroplasty 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 Flomax (Tamsulosin HCl) 0.4 Mg Cap 0.4 Mg PO HS Reported Meloxicam 15 Mg Tab 15 Mg PO DAILY PRN B50 Complex Tr (B-Complex W/Biotin & Folic Acid ER) 1 Tab 1 Tab PO DAILY Zolpidem (Zolpidem Tartrate) 10 Mg Tab 10 Mg PO HS PRN Pantoprazole (Pantoprazole Sodium) 40 Mg Tab 40 Mg PO DAILY Losartan (Losartan Potassium) 100 Mg Tab 100 Mg PO DAILY Active Ordered Medications Current Medications Chlorhexidine Gluconate 1 applic 1 applic ONCE TOPICAL Last administered on 06:00; Start 02/03/17 at 06:00; Stop 02/03/17 at 13:08; Status DC Cefazolin Sodium/ Dextrose 50 ml @ 100 mls/hr UNDERWRITING CLERK IV Last administered on 02/03/17 07:19; Start 02/03/17 at 06:00; Stop 02/03/17 at 13:06; Status DC Tranexamic Acid 768 mg/Sodium Chloride 107.68 ml @ 200 mls/ hr ONCE IV Last administered on 02/03/17 07:16; Start 02/03/17 at 07:00; Stop 02/03/17 at 13:00 ; Status DC Tranexamic Acid 768 mg/Sodium Chloride 107.68 ml @ 200 mls/ hr ONCE IV Last administered on 02/03/17 10:00; Start 02/03/17 at 10:00; Stop 02/03/17 at 16:00 ; Status DC Bupivacaine Liposome 20 ml/ Sodium Chloride 100 ml @ 200 mls/hr ONCE P- ARTICULR Last administered on 02/03/17 07:32; Start 02/03/17 at 06:00; Stop at 13:00; Status DC Lactated Ringer's 1,000 ml @ 30 mls/hr Q24H PRN IV SEE LABEL COMMENTS Last administered on 02/03/17 06:07; Start 02/03/17 at 06:15; Stop 02/03/17 at 07:35 ; Status DC Sodium Chloride (NS 500 ml Inj) 500 ml @ 30 mls/hr [id number] PRN IV SEE LABEL COMMENTS; Start 02/03/17 at 06:15; Stop 02/03/17 at 13:07; Status DC Metoprolol Tartrate (Lopressor) 25 mg UNDERWRITING CLERK PRN PO SEE LABEL COMMENTS; Start 02/03/17 at 06:15; Stop 02/03/17 at 13:07; Status DC Insulin Human Regular (NovoLIN R INJ) See Protocol Table ... UNDERWRITING CLERK PRN SQ SEE PROTOCOL TABLE; Start 02/03/17 at 06:15; Stop 02/03/17 at 13:07; Status DC Acetaminophen (Ofirmev Inj) 1,000 mg STK-MED ONCE IV ; Start 02/03/17 at 06:36; Stop 02/03/17 at 06:37; Status DC Famotidine (Pepcid Inj) 20 mg STK-MED ONCE .ROUTE ; Start 02/03/17 at 06:36; Stop 02/03/17 at 06:37; Status DC Dexamethasone Sodium Phosphate 4 mg 4 mg STK-MED ONCE .ROUTE ; Start 02/03/17 at 06:36; Stop 02/03/17 at 06:37; Status DC Lactated Ringer's (Lr 1000 ml Inj) 1,000 ml @ 80 mls/hr [id number] IV Last administered on 02/03/17 08:00; Start 02/03/17 at 08:00 Sodium Chloride (NS Flush) 2 ml UNSCH PRN IV FLUSH FLUSH AFTER USING IV ACCESS ; Start 02/03/17 at 07:15 Sodium Chloride 2 ml 2 ml BID IV FLUSH ; Start 02/03/17 at 09:00 Cefazolin Sodium/ Sodium Chloride (Ancef Inj/NS Inj) 100 ml @ 200 mls/hr Q6H IV Last administered on 02/03/17 13:25; Start 02/03/17 at 13:00; Stop at 01:29 Miscellaneous Information (Post-op Orders (for Pharmacy)) STAT ONCE XX ; Start 02/03/17 at 07:00; Stop 02/03/17 at 07:18; Status DC Morphine Sulfate (Morphine Inj) 4 mg Q3H PRN IV PUSH BREAKTHROUGH PAIN; Start 02/03/17 at 07:00 Acetaminophen/ Hydrocodone Bitart ([place] 7.5-325 Mg) 1 tab Q4H PRN PO PAIN LESS THAN 5 ON SCALE Last administered on 02/03/17 11:11; Start 02/03/17 at 07: 00 Acetaminophen/ Hydrocodone Bitart ([place] 7.5-325 Mg) 2 tab Q4H PRN PO PAIN SCALE 5 TO 10; Start 02/03/17 at 07:00 Ketorolac Tromethamine 15 mg 15 mg Q6H IVP Last administered on 02/03/17 13:25 ; Start 02/03/17 at 14:00; Stop 02/05/17 at 08:01 Tranexamic Acid/ Sodium Chloride (Cyklokapron Inj/ NS Inj) 100 ml @ 200 mls/hr UNSCH IV ; Start 02/03/17 at 07:00; Stop 02/03/17 at 07:29; Status UNV Ondansetron HCl (Zofran Inj) 4 mg Q6H PRN IVP NAUSEA OR VOMITING; Start at 07:00 Docusate Sodium (Colace) 100 mg BID PO ; Start 02/04/17 at 21:00 Zolpidem Tartrate (Ambien) 5 mg HS PRN PO SLEEP; Start 02/03/17 at 07:00 Magnesium Hydroxide (Milk Of Magnesia Liq) 30 ml DAILY PRN PO CONSTIPATION; Start 02/03/17 at 07:00 Aspirin (Ecotrin Ec) 81 mg DAILY PO ; Start 02/04/17 at 08:45 Finasteride (Proscar) 5 mg DAILY PO ; Start 02/03/17 at 09:00 Losartan Potassium (Cozaar) 100 mg DAILY PO ; Start 02/03/17 at 09:00 Pantoprazole Sodium (Protonix) 40 mg DAILY PO ; Start 02/03/17 at 09:00 Tamsulosin HCl (Flomax) 0.4 mg HS PO ; Start 02/03/17 at 21:00 Vitamin B Complex/ Vit C/Folic Acid (Nephrocaps) 1 cap DAILY PO ; Start at 09:00 Gentamicin Sulfate (Gentamicin Inj) 240 mg STK-MED ONCE IRRIGATION Last administered on 02/03/17 07:51; Start 02/03/17 at 07:51; Stop 02/03/17 at 07:54 ; Status DC Midazolam HCl (Versed Inj) 4 mg STK-MED ONCE .ROUTE ; Start 02/03/17 at 09:56; Stop 02/03/17 at 09:57; Status DC Morphine Sulfate (*morphine INJ PERIprocedure ONLY) 8 mg STK-MED ONCE .ROUTE Last administered on 02/03/17 10:04; Start 02/03/17 at 10:04; Stop 02/03/17 at 10:05; Status DC Morphine Sulfate (*morphine INJ PERIprocedure ONLY) 8 mg STK-MED ONCE .ROUTE Last administered on 02/03/17 10:17; Start 02/03/17 at 10:17; Stop 02/03/17 at 10:18; Status DC Family History Noncontributory Social History Lives with . Denies alcohol, tobacco, or illicit drug use. Physical Exam Vital Signs Vital Signs Date Time Temp Pulse Resp B/P Pulse Ox O2 Delivery O2 Flow Rate FiO2 02/03/17 15:58 98 21 02/03/17 14:25 18 02/03/17 12:11 18 02/03/17 10:30 82 16 125/71 98 Nasal Cannula 3 02/03/17 10:15 78 16 122/74 98 Nasal Cannula 3 02/03/17 10:00 79 16 120/70 98 Nasal Cannula 3 02/03/17 09:49 98.0 83 16 107/60 97 Nasal Cannula 3 02/03/17 06:03 98.0 99 16 172/93 100 Physical Exam GENERAL: This is a well-nourished, well-developed patient, in no apparent distress. SKIN: No rashes, ecchymoses or lesions. Cool and dry. HEAD: Atraumatic. Normocephalic. No temporal or scalp tenderness. EYES: Pupils equal round and reactive. Extraocular motions intact. No scleral icterus. No injection or drainage. ENT: Nose without bleeding, purulent drainage or septal hematoma. Throat without erythema, tonsillar hypertrophy or exudate. Uvula midline. Airway patent. NECK: Trachea midline. No JVD or lymphadenopathy. Supple, nontender, no meningeal signs. CARDIOVASCULAR: Regular rate and rhythm without murmurs, gallops, or rubs. RESPIRATORY: Clear to auscultation. Breath sounds equal bilaterally. No wheezes , rales, or rhonchi. GASTROINTESTINAL: Abdomen soft, non-tender, nondistended. No hepato-splenomegaly , or palpable masses. No guarding. MUSCULOSKELETAL: Right knee elevated and and with splint NEUROLOGICAL: Awake and alert. Cranial nerves II through XII intact. Motor and sensory grossly within normal limits. Five out of 5 muscle strength in all muscle groups. Normal speech. Laboratory Laboratory Tests Test 02/03/17 06:05 Blood Type A POSITIVE Antibody Screen NEGATIVE Imaging Last Impressions Knee X-Ray 02/03/17 0655 Signed Impressions: Service Date/Time: Friday, February 03, 2017 09:42 - CONCLUSION: Postsurgical changes right total knee arthroplasty. Da Guevara MD Assessment and Plan Assessment and Plan 76-year-old male presents with a history of hypertension, GERD, and BPH Severe right OA -Status post right total arthroplasty on 02/03/17 postop day #0 -Being managed by his orthopedic surgeon. Hypertension/BPH/GERD -Home medication resumed. Continue with home medication. DVT prophylaxis -Per orthopedics. Patient will be discharged home with home health. Code Status full Discussed Condition With Patient his Magdalena Garcia MD Feb 03, 2017 16:45
[2017-02-03 20:05] VITALS: BP 140/66; PULSE 88; RESP 17; TEMP 96.8; O2SAT 99
[2017-02-03] MEDS ORDERED: TAMSULOSIN HCL 0.4 MG CAP PO SCH (21:00)
[2017-02-04 00:05] VITALS: BP 131/65; PULSE 93; RESP 17; TEMP 97; O2SAT 97
[2017-02-04] MEDS: KETOROLAC TROMETHAMINE 30 MG/ML (IVP) VIAL IVP SCH ×2 (01:19→09:21)
[2017-02-04 04:05] VITALS: BP 133/67; PULSE 102; RESP 17; TEMP 96.8; O2SAT 96
--- NOTE | 2017-02-04 06:21 | PD.ORT.PN ---
Subjective Post Op Day #: 1 Subjective Remarks He is doing very well. He has almost no pain. Range of Motion 0 to 113 degrees. Distance Walked 110 feet with PT. Objective Vitals Vital Signs Date Time Temp Pulse Resp B/P Pulse Ox O2 Delivery O2 Flow Rate FiO2 02/04/17 04:05 96.8 102 17 133/67 96 02/04/17 00:05 97.0 93 17 131/65 97 02/03/17 20:05 96.8 88 17 140/66 99 02/03/17 15:58 98 21 02/03/17 15:55 95.1 89 16 134/61 99 02/03/17 14:25 18 02/03/17 12:11 18 02/03/17 11:05 96.2 84 16 142/79 95 02/03/17 10:30 82 16 125/71 98 Nasal Cannula 3 02/03/17 10:15 78 16 122/74 98 Nasal Cannula 3 02/03/17 10:00 79 16 120/70 98 Nasal Cannula 3 02/03/17 09:49 98.0 83 16 107/60 97 Nasal Cannula 3 I/O 02/03/17 02/03/17 02/03/17 02/04/17 02/04/17 02/04/17 07:00 15:00 23:00 07:00 15:00 23:00 Intake Total 2160 ml 240 ml Output Total 335 ml 350 ml Balance 1825 ml -110 ml Intake Oral 860 ml 240 ml IV Total 200 ml Other 1100 ml Output Urine Total 0 ml 150 ml Drainage Total 210 ml 200 ml Estimated Blood Loss 125 ml Other 0 ml Bladder Scan Volume Amount 115 ml # Voids 3 # Bowel Movements 0 0 Imaging Knee x-ray looks good. Last 24 hours Impressions Knee X-Ray 02/03/17 0655 Signed Impressions: Service Date/Time: Friday, February 03, 2017 09:42 - CONCLUSION: Postsurgical changes right total knee arthroplasty. Da Guevara MD Objective Remarks He is resting comfortably, supine in in bed in the CPM. The dressing is dry and intact. The neurovascular status is intact. Assessment & Plan Ortho Post Op Day #: 1 Problem List: (1) Status post total right knee replacement Plan: Continue postop care and PT. Assessment and Plan Orthopaedically stable. Condition: Good. DVT prophylaxis: TEDs, sequentials, ASA. Discharge plans: Home with [facility]. Has appointment. Rx: Maynard 7.5/325 Matthew Chambers MD (Charles) Feb 04, 2017 06:21
[2017-02-04] MEDS ORDERED: ASPI81TA11 PO (06:47)
[2017-02-04] MEDS ORDERED: HYDR-3580 PO (06:47)
[2017-02-04 08:00] VITALS: BP 142/65; PULSE 108; RESP 18; TEMP 96.1; O2SAT 96
[2017-02-04 08:02] LABS: HEMATOCRIT 31.6 % (39.0-51.0); REVIEW FLAG FINAL
[2017-02-04] MEDS ORDERED: ASPIRIN EC 81 MG TABEC PO SCH (08:45)
[2017-02-04] MEDS: LACTATED RINGER'S 1000 ML INJ 1,000 ML IV SCH (09:00)
[2017-02-04] MEDS: SODIUM CHLORIDE 0.9% FLUSH 10 ML FLUSH IV FLUSH SCH (09:00)
[2017-02-04] MEDS: PANTOPRAZOLE SOD 40 MG DELAYED RELEASE TAB PO SCH (09:14)
[2017-02-04] MEDS: LOSARTAN 50 MG TAB PO SCH (09:14)
[2017-02-04] MEDS: VITAMIN B CMPLX/VITC/FOLIC AC CAP PO SCH (09:14)
[2017-02-04] MEDS: FINASTERIDE 5 MG TAB PO SCH (09:14)
[2017-02-04] MEDS: ACETAMINOPHEN/HYDROcodone 325 MG/7.5 MG TAB PO PRN (09:17)
--- NOTE | 2017-02-04 09:45 | HHI.PR ---
Subjective Remarks Follow-up for medical management and right knee replacement Patient has no complaints he's waiting for physical therapy so he can go home. Patient stated that he urinating and he had a bowel movement. He is very anxious to go home. His is at the bedside. Objective Vitals Vital Signs Date Time Temp Pulse Resp B/P Pulse Ox O2 Delivery O2 Flow Rate FiO2 02/04/17 08:00 96.1 108 18 142/65 96 02/04/17 04:05 96.8 102 17 133/67 96 02/04/17 00:05 97.0 93 17 131/65 97 02/03/17 20:05 96.8 88 17 140/66 99 02/03/17 15:58 98 21 02/03/17 15:55 95.1 89 16 134/61 99 02/03/17 14:25 18 02/03/17 12:11 18 02/03/17 11:05 96.2 84 16 142/79 95 02/03/17 10:30 82 16 125/71 98 Nasal Cannula 3 02/03/17 10:15 78 16 122/74 98 Nasal Cannula 3 02/03/17 10:00 79 16 120/70 98 Nasal Cannula 3 02/03/17 09:49 98.0 83 16 107/60 97 Nasal Cannula 3 I/O 02/03/17 02/03/17 02/03/17 02/04/17 02/04/17 02/04/17 07:00 15:00 23:00 07:00 15:00 23:00 Intake Total 2160 ml 240 ml 240 ml Output Total 335 ml 350 ml 1180 ml 50 ml Balance 1825 ml -110 ml -940 ml -50 ml Intake Oral 860 ml 240 ml 240 ml IV Total 200 ml Other 1100 ml Output Urine Total 0 ml 150 ml 1100 ml Drainage Total 210 ml 200 ml 80 ml 50 ml Estimated Blood Loss 125 ml Other 0 ml Bladder Scan Volume Amount 115 ml # Voids 3 # Bowel Movements 0 0 0 Result Diagram: 02/04/17 0705 Objective Remarks GENERAL: in NAD SKIN: Warm and dry. HEAD: Normocephalic. EYES: No scleral icterus. No injection or drainage. NECK: Supple, trachea midline. No JVD or lymphadenopathy. CARDIOVASCULAR: Regular rate and rhythm without murmurs, gallops, or rubs. RESPIRATORY: Breath sounds equal bilaterally. No accessory muscle use. GASTROINTESTINAL: Abdomen soft, non-tender, nondistended. MUSCULOSKELETAL: Right knee in bandages. Sensation is intact. +2 DP pulses. Medications and IVs Current Medications Chlorhexidine Gluconate 1 applic 1 applic ONCE TOPICAL Last administered on 06:00; Start 02/03/17 at 06:00; Stop 02/03/17 at 13:08; Status DC Cefazolin Sodium/ Dextrose 50 ml @ 100 mls/hr RUBBER HEEL AND SOLE PRESS TENDER IV Last administered on 02/03/17 07:19; Start 02/03/17 at 06:00; Stop 02/03/17 at 13:06; Status DC Tranexamic Acid 768 mg/Sodium Chloride 107.68 ml @ 200 mls/ hr ONCE IV Last administered on 02/03/17 07:16; Start 02/03/17 at 07:00; Stop 02/03/17 at 13:00 ; Status DC Tranexamic Acid 768 mg/Sodium Chloride 107.68 ml @ 200 mls/ hr ONCE IV Last administered on 02/03/17 10:00; Start 02/03/17 at 10:00; Stop 02/03/17 at 16:00 ; Status DC Bupivacaine Liposome 20 ml/ Sodium Chloride 100 ml @ 200 mls/hr ONCE P- ARTICULR Last administered on 02/03/17 07:32; Start 02/03/17 at 06:00; Stop at 13:00; Status DC Lactated Ringer's 1,000 ml @ 30 mls/hr Q24H PRN IV SEE LABEL COMMENTS Last administered on 02/03/17 06:07; Start 02/03/17 at 06:15; Stop 02/03/17 at 07:35 ; Status DC Sodium Chloride (NS 500 ml Inj) 500 ml @ 30 mls/hr [id number] PRN IV SEE LABEL COMMENTS; Start 02/03/17 at 06:15; Stop 02/03/17 at 13:07; Status DC Metoprolol Tartrate (Lopressor) 25 mg RUBBER HEEL AND SOLE PRESS TENDER PRN PO SEE LABEL COMMENTS; Start 02/03/17 at 06:15; Stop 02/03/17 at 13:07; Status DC Insulin Human Regular (NovoLIN R INJ) See Protocol Table ... RUBBER HEEL AND SOLE PRESS TENDER PRN SQ SEE PROTOCOL TABLE; Start 02/03/17 at 06:15; Stop 02/03/17 at 13:07; Status DC Acetaminophen (Ofirmev Inj) 1,000 mg STK-MED ONCE IV ; Start 02/03/17 at 06:36; Stop 02/03/17 at 06:37; Status DC Famotidine (Pepcid Inj) 20 mg STK-MED ONCE .ROUTE ; Start 02/03/17 at 06:36; Stop 02/03/17 at 06:37; Status DC Dexamethasone Sodium Phosphate 4 mg 4 mg STK-MED ONCE .ROUTE ; Start 02/03/17 at 06:36; Stop 02/03/17 at 06:37; Status DC Lactated Ringer's (Lr 1000 ml Inj) 1,000 ml @ 80 mls/hr [id number] IV Last administered on 02/03/17 08:00; Start 02/03/17 at 08:00 Sodium Chloride (NS Flush) 2 ml UNSCH PRN IV FLUSH FLUSH AFTER USING IV ACCESS ; Start 02/03/17 at 07:15 Sodium Chloride 2 ml 2 ml BID IV FLUSH Last administered on 02/04/17 09:00; Start 02/03/17 at 09:00 Cefazolin Sodium/ Sodium Chloride (Ancef Inj/NS Inj) 100 ml @ 200 mls/hr Q6H IV Last administered on 02/04/17 01:19; Start 02/03/17 at 13:00; Stop at 01:29; Status DC Miscellaneous Information (Post-op Orders (for Pharmacy)) STAT ONCE XX ; Start 02/03/17 at 07:00; Stop 02/03/17 at 07:18; Status DC Morphine Sulfate (Morphine Inj) 4 mg Q3H PRN IV PUSH BREAKTHROUGH PAIN; Start 02/03/17 at 07:00 Acetaminophen/ Hydrocodone Bitart (Pepin 7.5-325 Mg) 1 tab Q4H PRN PO PAIN LESS THAN 5 ON SCALE Last administered on 02/04/17 09:17; Start 02/03/17 at 07: 00 Acetaminophen/ Hydrocodone Bitart (Pepin 7.5-325 Mg) 2 tab Q4H PRN PO PAIN SCALE 5 TO 10; Start 02/03/17 at 07:00 Ketorolac Tromethamine 15 mg 15 mg Q6H IVP Last administered on 02/04/17 09:21 ; Start 02/03/17 at 14:00; Stop 02/05/17 at 08:01 Tranexamic Acid/ Sodium Chloride (Cyklokapron Inj/ NS Inj) 100 ml @ 200 mls/hr UNSCH IV ; Start 02/03/17 at 07:00; Stop 02/03/17 at 07:29; Status UNV Ondansetron HCl (Zofran Inj) 4 mg Q6H PRN IVP NAUSEA OR VOMITING; Start at 07:00 Docusate Sodium (Colace) 100 mg BID PO ; Start 02/04/17 at 21:00 Zolpidem Tartrate (Ambien) 5 mg HS PRN PO SLEEP Last administered on 02/03/17 22:24; Start 02/03/17 at 07:00 Magnesium Hydroxide (Milk Of Magnesia Liq) 30 ml DAILY PRN PO CONSTIPATION; Start 02/03/17 at 07:00 Aspirin (Ecotrin Ec) 81 mg DAILY PO Last administered on 02/04/17 09:14; Start 02/04/17 at 08:45 Finasteride (Proscar) 5 mg DAILY PO Last administered on 02/04/17 09:14; Start 02/03/17 at 09:00 Losartan Potassium (Cozaar) 100 mg DAILY PO Last administered on 02/04/17 09: 14; Start 02/03/17 at 09:00 Pantoprazole Sodium (Protonix) 40 mg DAILY PO Last administered on 02/04/17 09 :14; Start 02/03/17 at 09:00 Tamsulosin HCl (Flomax) 0.4 mg HS PO Last administered on 02/03/17 20:36; Start 02/03/17 at 21:00 Vitamin B Complex/ Vit C/Folic Acid (Nephrocaps) 1 cap DAILY PO Last administered on 02/04/17 09:14; Start 02/03/17 at 09:00 Gentamicin Sulfate (Gentamicin Inj) 240 mg STK-MED ONCE IRRIGATION Last administered on 02/03/17 07:51; Start 02/03/17 at 07:51; Stop 02/03/17 at 07:54 ; Status DC Midazolam HCl (Versed Inj) 4 mg STK-MED ONCE .ROUTE ; Start 02/03/17 at 09:56; Stop 02/03/17 at 09:57; Status DC Morphine Sulfate (*morphine INJ PERIprocedure ONLY) 8 mg STK-MED ONCE .ROUTE Last administered on 02/03/17t 10:04; Start 02/03/17 at 10:04; Stop 02/03/17 at 10:05; Status DC Morphine Sulfate (*morphine INJ PERIprocedure ONLY) 8 mg STK-MED ONCE .ROUTE Last administered on 02/03/17 10:17; Start 02/03/17 at 10:17; Stop 02/03/17 at 10:18; Status DC A/P Assessment and Plan 76-year-old male presents with a history of hypertension, GERD, and BPH Severe right OA -Status post right total arthroplasty on 02/03/17 postop day #1. -Being managed by his orthopedic surgeon. -Patient is being cleared for discharge today with home health. Hypertension/BPH/GERD -Home medication resumed. Continue with home medication. DVT prophylaxis -Per orthopedics. Discharge Planning Patient is medically clear for discharge. He is being discharged with home health today. Magdalena Garcia MD Feb 04, 2017 09:45
[2017-02-04 10:17] VITALS: RESP 18
--- NOTE | 2017-02-04 18:01 | MP ---
cc: Shantell KEATING. DATE OF SURGERY 02/03/17 PREOPERATIVE DIAGNOSIS Primary osteoarthritis right knee POSTOPERATIVE DIAGNOSIS Primary osteoarthritis right knee OPERATION PERFORMED Right total knee arthroplasty with [place] Triathlon prosthesis (uncemented). SURGEON Nayan Keating MD PARTS COUNTER SPECIALIST MOISES Patel ANESTHESIA Spinal with supplemental adductor canal block and local. INDICATIONS AND FINDINGS This is a 76-year-old man who has had right knee pain for several years. This has limited his activities to walk distances, dance and stand for extended periods of time. He has limited weightbearing. He can walk less than a mile at this time. He has popping and giving away, stiffness and pain when standing. Treatment has included nonsteroidal anti-inflammatory agents, analgesics, activity modification, exercise, ambulatory aids and physical therapy without improvement. Physical findings showed genu varum with medial laxity and palpable medial osteophytes. There is an effusion. X-rays show loss of articular cartilage down to [id number] in the medial compartment with degenerative change in patellofemoral compartments as well. Operative findings were consistent with the radiographic findings with there being significant osteoarthritis in the medial compartment down to expose some eburnated subchondral bone with osteophytes in the medial and patellofemoral as well as the lateral compartments. The prosthesis used was a [place] Triathlon prosthesis with the femur being a size six, the tibia being a size seven, both tritanium baseplates with a 9 mm spacer. The femur and spacer were both cruciate-retaining. The patella was a tritanium backed asymmetric patella size 38. Range of motion at the conclusion of the procedure was 0 degrees extension to 150 degrees of flexion with excellent stability and appropriate tracking. PROCEDURE IN DETAIL The patient was brought to the clean-air operating suite and had an adductor canal block and spinal anesthetic administered. He received prophylactic antibiotics in the form of Ancef and also received tranexamic acid. A small bolster was placed under the right hip. A pneumatic tourniquet was applied. The right leg was then prepped with alcohol, Hibiclens and Chloraprep and draped in the usual manner with the knee draped free. An appropriate time-out procedure was carried out. Local anesthesia was administered into the incision site prior to making the incision. The incision was then made from about three fingerbreadths above the superior and medial pole of the patella down to the tibial tubercle. The incision was deepened through the subcutaneous tissues of the retinacular structures which were exposed medially and laterally. A medial retinacular incision was made from the superior medial pole of the patella down to the tibial tubercle and up to the quadriceps tendon splitting it longitudinally in the medial one-third. The patella was reflected. Medial and lateral dissection was carried out. The infrapatellar fat pad was debulked. The posterior surface of the patella was excised with the oscillating saw taking care to prevent injury to tendinous and ligamentous structures. A patella protector was applied. The patella slipped into the lateral gutter. A fenestration was made in the distal end of the femur and proximal end of the tibia with the appropriate drill. The distal femoral cutting guide wire and jig were then assembled for 5 degrees 8-mm cut. Cutting block was stabilized with pins. The jig was removed. The distal femoral cut was completed. The sizing guide was then positioned along white sides line in the epicondylar axis. This was stabilized with pins. The size was determined to be a size six which was the same as the opposite side. The 4:1 cutting block was then positioned in place and held with pins. Anterior and posterior cuts were made followed by posterior and anterior chamfer cuts. Osteophytes were trimmed. Attention was directed to the tibia. Medial and lateral meniscectomies were completed. The proximal tibial cutting guide and jig were then positioned in place and rotational alignment was checked. When this was checked and appeared to be appropriate and was adjusted accordingly. The cutting block was stabilized with pins. The depth of cut was verified. The proximal tibial cutting block was stabilized with a cross pin. Proximal tibial cut was then initiated, but because of the thickness and eburnation in the medial compartment it was determined to go an extra 2 mm. The cutting block was readjusted and the proximal tibial cut was completed. The spacer block determined that this was an appropriate cut. The tibial baseplate trial was a size seven. An 11 mm spacer was tried first, but this was tight. Therefore, a 9-mm spacer was inserted. The femoral trial was impacted into place. The tibial baseplate was stabilized for rotation. The position appeared excellent. The alignment was appropriate. The patella drill guide was positioned and drill holes made for the 38-mm patella. The trial patella was placed. The knee was taken through a range of motion which was easily 0 degrees extension to 150 degrees of flexion with excellent stability and tracking. The femoral drill holes were made. The femoral trial and patella trial were removed. The tibial spacer was removed. The tibial punch was impacted through its guide after first placing bone plugs in the femur and tibia. The tibial drill guide was positioned in place and drill holes made. The cut ends of bone were then cleaned with pulse lavage. Local anesthetic was administered throughout the knee with Exparel. The tibial baseplate was then impacted into place and seated appropriately. This was a size seven tritanium baseplate. A 9 mm spacer was inserted and impacted into place. The femoral component which was a size six porous coated was impacted into place and seated appropriately. This gave a stable fit. The patella was positioned in place and stabilized with the patella vice. The knee was taken through a range of motion which was easily 0 degrees extension to 150 degrees of flexion. The stability was excellent as was the tracking. The remainder of the Exparel was injected. Drains were brought out the superolateral aspect of the suprapatellar pouch. Wound closure then commenced using 0 Vicryl interrupted [id number] sutures for retinacular and capsular structures, 2-0 Vicryl interrupted simple sutures with buried knots for the subcutaneous tissues and 4-0 Monocryl continuous subcuticular closure for the skin. The wound was dressed with Steri-Strips followed by dry dressing, sterile Sof-Rol, cooling pad, further sterile Sof-Rol and Wagner bandage from the base of the toe to mid thigh. The patient was transferred from the operating room to the recovery room in satisfactory condition having tolerated the procedure well. Counts were correct. Specimens none. Estimated blood loss 200 mL. MD DENISE Pimentel/ /9:35 AM /5:32 PM
[2017-02-04] MEDS ORDERED: DOCUSATE SODIUM 100 MG CAP PO SCH (21:00)
== END 2017-02-04 12:04 | disposition home health service (06) | DRG 470 ==
LOC: HSDI 02-03 05:24 → N06A 02-03 10:45
PROVIDERS: ADMIT Orthopaedic Surgery; ATTEND Orthopaedic Surgery
PROC: 3E0T3BZ Introduction of Anesthetic Agent into Peripheral Nerves and Plexi, Percutaneous Approach (ICD-10-PCS; 2017-02-03)
PROC: 0SRC0JA Replacement of Right Knee Joint with Synthetic Substitute, Uncemented, Open Approach (ICD-10-PCS; principal; 2017-02-03 06:46)
DX: M17.11 Unilateral primary osteoarthritis, right knee (principal); I10 Essential (primary) hypertension; K21.9 Gastro-esophageal reflux disease without esophagitis; N40.0 Benign prostatic hyperplasia without lower urinary tract symptoms; Z96.652 Presence of left artificial knee joint; Z85.820 Personal history of malignant melanoma of skin
CPT/HCPCS: 73560; 85014; 85018; 86850; 86900; 86901; 94150; C1776; C9290; J0131; J0690; J1100; J1580; J1885; J2250; J2270; J2370; J2405; J7120

== ENCOUNTER → 2017-01-24 | Outpatient (CLI) | payer MEDICARE, BC ==
[~2017-01-24] MED LIST changes: +ASPI81TA11 PO; +CEPH-459 PO; +HYDR-3580 PO; +MELO-1 PO
[2017-01-24 12:40] LABS: HEMATOCRIT 40.6 % (39.0-51.0); MEAN CELL VOLUME 88.4 FL (80.0-100.0); MEAN CORPUSCULAR HEMOGLOBIN 29.7 PG (27.0-34.0); MEAN CORPUSCULAR HGB CONC 33.6 % (32.0-36.0); PLATELET COUNT 224 TH/MM3 (150-450); RED CELL DISTRIBUTION WIDTH 13.4 % (11.6-17.2); REVIEW FLAG FINAL; WHITE BLOOD COUNT 7.9 TH/MM3 (4.0-11.0)
[2017-01-24 12:51] LABS: BLOOD, URINE NEG (NEG); COMMENT (UR) CULT NOT INDICATED; CULTURE IF INDICATED CULT NOT INDICATED; GLUCOSE,URINE NEG (NEG); KETONE, URINE NEG (NEG); MUCUS URINE FEW /lpf (OCC); NITRITE,URINE NEG (NEG); URINE COLOR YELLOW (YELLW/STRAW)
[2017-01-24 12:53] LABS: APTT (PATIENT) 27.1 SEC (24.3-30.1); INTERNATIONAL NORMALIZED RATIO 0.9 RATIO; PROTHROMBIN TIME - PATIENT 10.3 SEC (9.8-11.6)
[2017-01-24 13:29] LABS: BICARBONATE 28.5 MEQ/L (21.0-32.0); POTASSIUM 4.8 MEQ/L (3.5-5.1)
== END ==
LOC: CPRE 11:59
PROVIDERS: ATTEND Orthopaedic Surgery
DX: Z01.812 Encounter for preprocedural laboratory examination (principal); M79.609 Pain in unspecified limb; M17.11 Unilateral primary osteoarthritis, right knee
CPT/HCPCS: 36415; 80048; 81001; 85027; 85610; 85730